=== PATIENT | female | born 1950 | race Caucasian/White ===

== ENCOUNTER 2017-01-11 16:26 | Emergency (ER) | payer OTHER ==
[~2017-01-11] VITALS: Ht 160 cm; Wt 63.5 kg
[2017-01-11 16:52] LABS: BASOPHIL % 0.5 % (0-2); PLATELET COUNT 304 x10^3mcL (130-400); RED CELL DISTRIBUTION WIDTH 13.1 % (11.5-14.5)
[2017-01-11 17:03] LABS: CALCIUM 9.6 mg/dL (8.5-10.1); CARBON DIOXIDE 25.2 mmol/L (21-32); CHLORIDE SERUM 101 mmol/L (98-107); GFR1 59 mL/min; GLUCOSE SERUM 115 mg/dL (74-106); POTASSIUM SERUM 3.9 mmol/L (3.5-5.1); SODIUM SERUM 140 mmol/L (136-145)
[2017-01-11 17:07] LABS: ALBUMIN 4.1 g/dL (3.4-5.0); ALKALINE PHOSPHATASE 59 U/L (46-116); ALT/SGPT 20 U/L (14-59); AST/SGOT 19 U/L (15-37); BILIRUBIN TOTAL 0.4 mg/dL (0.20-1.00); MAGNESIUM 2.3 mg/dL (1.8-2.4); TOTAL PROTEIN, SERUM 7.5 g/dL (6.4-8.2)
[2017-01-11 17:29] LABS: UA SPECIFIC GRAVITY >=1.030 (1.005-1.035); microscopic required? YES; urine erythrocyte NEGATIVE (NEGATIVE)
[2017-01-11 17:45] LABS: AMPHETAMINE QUAL UR NONE DETECTED (NEG <=1000)
[2017-01-11 21:36] VITALS: BP 141/68
== END 2017-01-11 21:36 ==
LOC: ED 16:26
PROVIDERS: Emergency Medicine
DX: F99 Mental disorder, not otherwise specified (principal); N39.0 Urinary tract infection, site not specified; Z79.899 Other long term (current) drug therapy
CPT/HCPCS: 36415; 82962; G0480

== ENCOUNTER 2017-01-27 19:30 | Emergency (ER) | payer OTHER ==
[~2017-01-27] VITALS: Ht 160 cm; Wt 62.1 kg
[2017-01-27 19:50] LABS: BASOPHIL % 0.6 % (0-2); PLATELET COUNT 315 x10^3mcL (130-400); RED CELL DISTRIBUTION WIDTH 13.2 % (11.5-14.5)
[2017-01-27 20:05] LABS: CALCIUM 9.6 mg/dL (8.5-10.1); CARBON DIOXIDE 27.4 mmol/L (21-32); CHLORIDE SERUM 101 mmol/L (98-107); CREATININE SERUM 1.2 mg/dL (0.6-1.0); GFR1 47 mL/min; GLUCOSE SERUM 137 mg/dL (74-106); POTASSIUM SERUM 3.8 mmol/L (3.5-5.1); SODIUM SERUM 140 mmol/L (136-145)
[2017-01-27 20:10] LABS: ALBUMIN 3.8 g/dL (3.4-5.0); ALKALINE PHOSPHATASE 58 U/L (46-116); ALT/SGPT 20 U/L (14-59); AST/SGOT 23 U/L (15-37); BILIRUBIN TOTAL 0.4 mg/dL (0.20-1.00); TOTAL PROTEIN, SERUM 7.1 g/dL (6.4-8.2)
[2017-01-27 21:09] LABS: AMPHETAMINE QUAL UR NONE DETECTED (NEG <=1000)
[2017-01-28 11:44] LABS: CALCIUM 8.1 mg/dL (8.5-10.1); CARBON DIOXIDE 25.3 mmol/L (21-32); CHLORIDE SERUM 110 mmol/L (98-107); CREATININE SERUM 0.6 mg/dL (0.6-1.0); GFR1 > 60 mL/min; GLUCOSE SERUM 84 mg/dL (74-106); POTASSIUM SERUM 3.6 mmol/L (3.5-5.1); SODIUM SERUM 142 mmol/L (136-145)
[2017-01-28 11:49] LABS: ALBUMIN 2.9 g/dL (3.4-5.0); ALKALINE PHOSPHATASE 48 U/L (46-116); ALT/SGPT 21 U/L (14-59); AST/SGOT 23 U/L (15-37); BILIRUBIN TOTAL 0.36 mg/dL (0.20-1.00); TOTAL PROTEIN, SERUM 5.7 g/dL (6.4-8.2)
[2017-01-28 13:10] VITALS: BP 132/79
== END 2017-01-28 13:10 | disposition short-term general hospital (02) ==
LOC: ED 19:30
PROVIDERS: Emergency Medicine
DX: F25.9 Schizoaffective disorder, unspecified (principal); F12.10 Cannabis abuse, uncomplicated; F99 Mental disorder, not otherwise specified; Z88.0 Allergy status to penicillin; Z88.2 Allergy status to sulfonamides
CPT/HCPCS: G0480; J7030; J7620

== ENCOUNTER 2017-02-18 00:36 | Emergency (ER) | payer OTHER ==
[2017-02-18 02:09] VITALS: BP 110/66
== END 2017-02-18 02:09 | disposition other institution (70) ==
LOC: ED 00:36
DX: Z02.89 Encounter for other administrative examinations (principal); L84 Corns and callosities; M25.562 Pain in left knee; M25.561 Pain in right knee; E03.9 Hypothyroidism, unspecified; G89.29 Other chronic pain; M54.2 Cervicalgia; G50.0 Trigeminal neuralgia; Z88.0 Allergy status to penicillin; Z88.2 Allergy status to sulfonamides; Z88.8 Allergy status to other drugs, medicaments and biological substances; Z86.59 Personal history of other mental and behavioral disorders; Z79.899 Other long term (current) drug therapy

== ENCOUNTER 2017-06-30 06:00 | Emergency (ER) | payer OTHER ==
[2017-06-30 06:04] VITALS: BP 131/79
== END 2017-06-30 06:48 | disposition left against medical advice (07) ==
LOC: ED 06:00
DX: M25.561 Pain in right knee (principal); M19.90 Unspecified osteoarthritis, unspecified site; G50.0 Trigeminal neuralgia; G89.29 Other chronic pain; M54.2 Cervicalgia; F12.929 Cannabis use, unspecified with intoxication, unspecified; Z88.0 Allergy status to penicillin; Z88.2 Allergy status to sulfonamides; Z88.8 Allergy status to other drugs, medicaments and biological substances; Z91.018 Allergy to other foods; W18.09XA Striking against other object with subsequent fall, initial encounter; Y93.89 Activity, other specified; Y99.8 Other external cause status; Y92.89 Other specified places as the place of occurrence of the external cause

== ENCOUNTER 2017-07-03 19:01 | Emergency (ER) | payer OTHER ==
[2017-07-03 21:20] VITALS: BP 138/84
== END 2017-07-03 21:20 | disposition home or self-care (01) ==
LOC: ED 19:01
DX: S30.0XXA Contusion of lower back and pelvis, initial encounter (principal); E07.9 Disorder of thyroid, unspecified; Z88.0 Allergy status to penicillin; Z88.2 Allergy status to sulfonamides; Z91.018 Allergy to other foods; W19.XXXA Unspecified fall, initial encounter; Y93.89 Activity, other specified; Y92.89 Other specified places as the place of occurrence of the external cause; Y99.8 Other external cause status

== ENCOUNTER 2017-07-23 08:45 | Emergency (ER) | payer OTHER ==
[~2017-07-23] VITALS: Ht 157.5 cm; Wt 55.3 kg
[2017-07-23 08:50] VITALS: BP 128/90; Ht 157.5 cm; Wt 55.3 kg
== END 2017-07-23 11:31 | disposition home or self-care (01) ==
LOC: ED 08:45
DX: R51 Headache (principal); R11.0 Nausea; G89.29 Other chronic pain; M54.2 Cervicalgia; F17.210 Nicotine dependence, cigarettes, uncomplicated; F12.90 Cannabis use, unspecified, uncomplicated; Z88.0 Allergy status to penicillin; Z88.2 Allergy status to sulfonamides; W18.30XA Fall on same level, unspecified, initial encounter; Y93.89 Activity, other specified; Y99.8 Other external cause status; Y92.89 Other specified places as the place of occurrence of the external cause
CPT/HCPCS: J1885